=== PATIENT | male | born 1940 | race Caucasian/White ===

== ENCOUNTER → 2018-05-04 | Outpatient (CLI) | payer MEDICARE | END | disposition home or self-care (01) | LOC: ROC 10:22 | PROVIDERS: ATTEND Radiology Radiation Oncology | DX: C61 Malignant neoplasm of prostate (principal); Z79.82 Long term (current) use of aspirin; Z88.1 Allergy status to other antibiotic agents; Z90.49 Acquired absence of other specified parts of digestive tract | CPT/HCPCS: G0463 ==

== ENCOUNTER → 2018-05-14 | Outpatient (CLI) | payer MEDICARE | END | disposition home or self-care (01) | LOC: PETCFH 13:48 | PROVIDERS: ATTEND Radiology Radiation Oncology | DX: C61 Malignant neoplasm of prostate (principal); R91.8 Other nonspecific abnormal finding of lung field; I25.10 Atherosclerotic heart disease of native coronary artery without angina pectoris; N28.1 Cyst of kidney, acquired | CPT/HCPCS: 78815; A9588 ==

== ENCOUNTER → 2018-05-15 | Outpatient (CLI) | payer MEDICARE | END | disposition home or self-care (01) | LOC: ROC 08:53 | PROVIDERS: ATTEND Radiology Radiation Oncology | DX: Z08 Encounter for follow-up examination after completed treatment for malignant neoplasm (principal); C61 Malignant neoplasm of prostate | CPT/HCPCS: G0463 ==

== ENCOUNTER 2018-06-10 07:36 | Inpatient (IN) | payer MEDICARE ==
[2018-06-09 12:17] LABS: BASOPHILS # (AUTO) 0.04 x10^3/uL (0-0.1); BASOPHILS % (AUTO) 1 % (0-1); EOSINOPHILS # (AUTO) 0.14 x10^3/uL (0-0.4); EOSINOPHILS % (AUTO) 2 % (1-7); LYMPHOCYTES # (AUTO) 1.99 x10^3/uL (1-3.4); LYMPHOCYTES % (AUTO) 24 % (22-44); MD NO; MEAN CORPUSCULAR HEMOGLOBIN 28.5 pg (27.5-34.5); MEAN CORPUSCULAR HGB CONC 33.1 g/dL (33.2-36.2); MEAN CORPUSCULAR VOLUME 86.2 fL (81-97); MONOCYTES # (AUTO) 0.93 x10^3/uL (0.2-0.8); MONOCYTES % (AUTO) 11 % (2-9); NEUTROPHILS # (AUTO) 5.28 x10^3/uL (1.8-6.8); NEUTROPHILS % (AUTO) 63 % (42-75); PLATELET COUNT 268 x10^3/uL (130-400); RED BLOOD COUNT 5.93 x10^6/uL (4.38-5.82); RED CELL DISTRIBUTION WIDTH 14.6 % (9.4-14.8)
[2018-06-09 12:25] LABS: ALANINE AMINOTRANSFERASE 25 U/L (12-78); ALBUMIN 4.1 g/dL (3.4-5.0); ANION GAP 6 mmol/L (5-15); CALCIUM 9.5 mg/dL (8.5-10.1); CHLORIDE 108 mmol/L (98-107); CREATININE 1.05 mg/dL (0.7-1.3)
[2018-06-09 12:28] LABS: ALKALINE PHOSPHATASE 52 U/L (45-117); BILIRUBIN,TOTAL 0.7 mg/dL (0.2-1.0)
[~2018-06-10] VITALS: Ht 170.2 cm; Wt 82.9 kg
[~2018-06-10 07:36] MED LIST: ASPI81TA45 PO; BUPIVACAINE/EPI 0.5% 1:200K ONE; ESOM20CA PO; FENO160T PO; FURO20TA3 PO; HYDR25TA6 PO; LORA-247 PO; LOSA100T14 PO; METO-99 PO; MULT-249 PO; PRAV20TA2 PO; TAMS-11 PO
[2018-06-10] MEDS ORDERED: APREPITANT 40 MG CAPSULE PO STA (07:55)
[2018-06-10] MEDS ORDERED: LACTATED RINGERS 1,000 ML IV SCH (07:57)
[2018-06-10] MEDS ORDERED: GABAPENTIN 300 MG CAPSULE PO ONE (08:00)
[2018-06-10] MEDS ORDERED: ACETAMINOPHEN 500 MG TABLET PO ONE (08:00)
[2018-06-10 08:23] VITALS: BP 137/80
[2018-06-10] MEDS ORDERED: CEFAZOLIN 1,000 MG ONE (10:14)
[2018-06-10] MEDS ORDERED: PROPOFOL 10 MG/ML, 20ML ONE (10:14)
[2018-06-10] MEDS ORDERED: ONDANSETRON 2MG/ML, 2ML ONE (10:14)
[2018-06-10] MEDS ORDERED: PHENYLEPHRINE 10 MG/ML ONE (10:14)
[2018-06-10] MEDS ORDERED: ROCURONIUM 10 MG/ML,10ML ONE (10:14)
[2018-06-10] MEDS ORDERED: SUGAMMADEX 200 MG/2 ML IVPush ONE (10:14)
[2018-06-10] MEDS ORDERED: FENTANYL PF 250 MCG/5ML ONE (10:16)
[2018-06-10] MEDS: LACTATED RINGERS 1,000 ML IV SCH (11:10)
[2018-06-10] MEDS ORDERED: morphine SULFATE 10 MG/ML, 1ML IVPush PRN (11:30)
[2018-06-10] MEDS ORDERED: LORazepam 2 MG/ML, 1ML IVPush PRN (11:30)
[2018-06-10] MEDS ORDERED: ACETAMINOPHEN 325 MG TABLET PO PRN (11:30)
[2018-06-10] MEDS ORDERED: HYDROmorphone 2 MG/ML, 1ML IVPush PRN (11:30)
[2018-06-10] MEDS ORDERED: DIPHENHYDRAMINE 50 MG/ML, 1ML IVPush PRN (11:30)
[2018-06-10] MEDS ORDERED: hydrALAzine 20 MG/ML, 1ML IV PRN (11:30)
[2018-06-10] MEDS ORDERED: ONDANSETRON 2MG/ML, 2ML IVPush PRN (11:30)
[2018-06-10] MEDS ORDERED: HALOPERIDOL 5 MG/ML IV PRN (11:30)
[2018-06-10] MEDS ORDERED: PROMETHAZINE 25 MG/ML, 1ML IV PRN (11:30)
[2018-06-10] MEDS ORDERED: MEPERIDINE/PF 25MG/0.5ML IVPush PRN (11:30)
[2018-06-10] MEDS ORDERED: hydrALAzine 20 MG/ML, 1ML IVPush PRN (11:30)
[2018-06-10] MEDS ORDERED: ENALAPRILAT 1.25 MG/ML, 2ML IVPush PRN (11:30)
[2018-06-10] MEDS ORDERED: OXYcodone 5 MG/5 ML ORAL.SOL UDC PO PRN (11:30)
[2018-06-10] MEDS ORDERED: ALBUTEROL SULFATE 2.5 MG/3 ML NPPB PRN (11:30)
[2018-06-10] MEDS ORDERED: ACETAMINOPHEN 650 MG SUPP PR PRN (11:30)
[2018-06-10] MEDS: FAMOTIDINE 20 MG/2 ML IVPush SCH ×2 (11:30→23:21)
[2018-06-10] MEDS ORDERED: DIPHENHYDRAMINE 25 MG CAPSULE PO PRN (11:30)
[2018-06-10] MEDS ORDERED: OXYcodone 5 MG/5 ML ORAL.SOL UDC ONE (11:48)
[2018-06-10] MEDS ORDERED: FENTANYL PF 100 MCG/2ML ONE (11:48)
[2018-06-10] MEDS: FENTANYL PF 100 MCG/2ML IV PRN ×3 (11:52→12:10)
[2018-06-10] MEDS: ENOXAPARIN 40 MG/0.4 ML SQ SCH (13:00)
[2018-06-10] MEDS: HYDROcodone/APAP 5/325 TABLET PO PRN ×3 (14:28→22:28)
[2018-06-10 19:19] VITALS: BP 144/78
[2018-06-10] MEDS ORDERED: PRAVASTATIN 20 MG TABLET PO SCH (21:00)
[2018-06-10] MEDS: TAMSULOSIN 0.4 MG CAP.ER.24H PO SCH (22:28)
[2018-06-10] MEDS: METOPROLOL TARTRATE 100 MG TABLET PO SCH (22:29)
[2018-06-11 00:16] VITALS: BP 137/76
[2018-06-11] MEDS: LACTATED RINGERS 1,000 ML IV SCH ×2 (00:28→08:01)
[2018-06-11] MEDS: HYDROcodone/APAP 5/325 TABLET PO PRN ×3 (02:28→12:15)
[2018-06-11 04:09] VITALS: BP 122/70
[2018-06-11 04:48] LABS: BASOPHILS # (AUTO) 0.06 x10^3/uL (0-0.1); BASOPHILS % (AUTO) 1 % (0-1); EOSINOPHILS # (AUTO) 0.27 x10^3/uL (0-0.4); EOSINOPHILS % (AUTO) 3 % (1-7); LYMPHOCYTES # (AUTO) 1.56 x10^3/uL (1-3.4); LYMPHOCYTES % (AUTO) 17 % (22-44); MD NO; MEAN CORPUSCULAR HEMOGLOBIN 28.9 pg (27.5-34.5); MEAN CORPUSCULAR HGB CONC 33.4 g/dL (33.2-36.2); MEAN CORPUSCULAR VOLUME 86.8 fL (81-97); MEAN PLATELET VOLUME 8.2 fL (7.4-10.4); MONOCYTES # (AUTO) 1.15 x10^3/uL (0.2-0.8); MONOCYTES % (AUTO) 13 % (2-9); NEUTROPHILS # (AUTO) 5.97 x10^3/uL (1.8-6.8); NEUTROPHILS % (AUTO) 66 % (42-75); PLATELET COUNT 222 x10^3/uL (130-400); RED BLOOD COUNT 4.86 x10^6/uL (4.38-5.82); RED CELL DISTRIBUTION WIDTH 14.7 % (9.4-14.8)
[2018-06-11 04:56] LABS: ANION GAP 5 mmol/L (5-15); CALCIUM 8.5 mg/dL (8.5-10.1); CHLORIDE 108 mmol/L (98-107); CREATININE 1.06 mg/dL (0.7-1.3)
[2018-06-11 08:35] VITALS: BP 112/60
[2018-06-11] MEDS: ENOXAPARIN 40 MG/0.4 ML SQ SCH (08:36)
[2018-06-11] MEDS: METOPROLOL TARTRATE 100 MG TABLET PO SCH (08:37)
[2018-06-11] MEDS: TAMSULOSIN 0.4 MG CAP.ER.24H PO SCH (08:37)
[2018-06-11] MEDS ORDERED: LOSARTAN 50MG TABLET PO SCH (09:00)
[2018-06-11] MEDS ORDERED: FENOFIBRATE 54 MG TABLET PO SCH (09:00)
[2018-06-11] MEDS ORDERED: HYDR-3240 PO (10:17)
[2018-06-11] MEDS ORDERED: FAMOTIDINE 20 MG TABLET PO SCH (11:30)
[2018-06-11 11:51] VITALS: BP 104/59
== END 2018-06-11 12:30 | disposition home or self-care (01) | DRG 164 ==
LOC: ORIP 07:36 → 4NOR 12:59
PROVIDERS: ADMIT Thoracic Surgery (Cardiothoracic Vascular Surgery); ATTEND Thoracic Surgery (Cardiothoracic Vascular Surgery)
PROC: 07B74ZX Excision of Thorax Lymphatic, Percutaneous Endoscopic Approach, Diagnostic (ICD-10-PCS; 2018-06-10)
PROC: 0BBC4ZZ Excision of Right Upper Lung Lobe, Percutaneous Endoscopic Approach (ICD-10-PCS; principal; 2018-06-10 10:00)
DX: C78.01 Secondary malignant neoplasm of right lung (principal); C77.1 Secondary and unspecified malignant neoplasm of intrathoracic lymph nodes; R59.1 Generalized enlarged lymph nodes; Z91.013 Allergy to seafood; Z87.891 Personal history of nicotine dependence; Z85.46 Personal history of malignant neoplasm of prostate
CPT/HCPCS: 36415; 71045; 80048; 80053; 85025; 86850; 86900; 88305; 88307; 93005; C1729; G0378; J0690; J1650; J2405; J2704; J3010; J8501; J2370; J3490; J7120

== ENCOUNTER 2019-12-27 09:35 | Outpatient (CLI) | payer MEDICARE ==
[~2019-12-27 09:35] MED LIST changes: -BUPIVACAINE/EPI 0.5% 1:200K ONE; +HYDR-3240 PO
[2019-12-27 09:56] LABS: BASOPHILS % (AUTO) 1 % (0-1); EOSINOPHILS % (AUTO) 3 % (1-7); LYMPHOCYTES % (AUTO) 26 % (22-44); MEAN CORPUSCULAR HEMOGLOBIN 28.2 pg (27.5-34.5); MEAN CORPUSCULAR HGB CONC 33.4 g/dL (33.2-36.2); MEAN PLATELET VOLUME 8.6 fL (7.4-10.4); MONOCYTES % (AUTO) 11 % (2-9); NEUTROPHILS % (AUTO) 59 % (42-75); PLATELET COUNT 253 x10^3/uL (130-400); RED BLOOD COUNT 5.79 x10^6/uL (4.38-5.82); RED CELL DISTRIBUTION WIDTH 14.1 % (9.4-14.8)
[2019-12-27 10:05] LABS: ALANINE AMINOTRANSFERASE 18 U/L (12-78); ALBUMIN 3.8 g/dL (3.4-5.0); ANION GAP 5 mmol/L (5-15); CALCIUM 8.9 mg/dL (8.5-10.1); CHLORIDE 107 mmol/L (98-107)
[2019-12-27 10:07] LABS: MD NO
[2019-12-27 10:09] LABS: ALKALINE PHOSPHATASE 70 U/L (45-117); BILIRUBIN,TOTAL 0.6 mg/dL (0.2-1.0); CREATININE 1.11 mg/dL (0.7-1.3); TOTAL PROTEIN 6.8 g/dL (6.4-8.2)
== END 2019-12-27 23:59 | disposition home or self-care (01) ==
LOC: RAD 09:35
PROVIDERS: ATTEND Internal Medicine
DX: C61 Malignant neoplasm of prostate (principal); C78.00 Secondary malignant neoplasm of unspecified lung; K57.30 Diverticulosis of large intestine without perforation or abscess without bleeding; N28.1 Cyst of kidney, acquired; I51.7 Cardiomegaly; I25.10 Atherosclerotic heart disease of native coronary artery without angina pectoris; J98.4 Other disorders of lung; M41.86 Other forms of scoliosis, lumbar region; Z79.899 Other long term (current) drug therapy
CPT/HCPCS: 36415; 71250; 74176; 78306; 80053; 84153; 84403; 85025; A9503; G0103